=== PATIENT | male | born 1995 | race Caucasian/White ===

== ENCOUNTER 2017-10-29 12:53 | Emergency (ER) | payer OTHER ==
[2017-10-29 13:25] LABS: PLATELET COUNT 247 10^3/uL (150-400)
--- NOTE | 2017-10-29 13:40 | EDPHY ---
H & P Time Seen by Provider: 10/29/17 13:16 HPI/ROS: Chief complaint. Abdominal pain HPI. 22-year-old male presents emergency department with 1 week history of nausea after eating. No vomiting. Some diarrhea that is not contain blood. Last 2-3 days uncomfortable in the left side of his abdomen. Some sensation that it goes through to his back. He describes as crampy. Maybe slight fever. No urinary symptoms. Penis and testicles are normal. No abdominal history or previous abdominal surgery. No chest discomfort or shortness of breath. ROS Constitutional. Subjective fever Eyes. no problems with vision ENT. no sore throat, no nasal drainage Cardiovascular. no chest pain Respiratory. no shortness of breath, no cough Abdominal. Left-sided abdominal pain with nausea and diarrhea . no problems urinating MS. no calf pain/swelling, no neck/back pain, no joint pain Skin. no rash Lymph. no swollen glands Neuro. no headache, no dizziness, no difficulty walking or with speech Past Medical/Surgical History: Asthma Social History: Single, nonsmoker, no alcohol Smoking Status: Never smoked Physical Exam: General Appearance: Alert well-developed male mild distress vital signs are stable Eyes: Pupils equal and round no pallor or injection. ENT, Mouth: Mucous membranes are moist. Respiratory: There are no retractions, lungs are clear to auscultation. Cardiovascular: Regular rate and rhythm. Gastrointestinal: Abdomen is soft and minimally, diffusely tender left mid and upper abdomen. No masses. Normal bowel sounds Neurological: Awake and alert, sensory and motor exams grossly normal. Skin: Warm and dry, no rashes. Musculoskeletal: Neck is supple nontender. Extremities symmetrical, full range of motion. Psychiatric: Patient is oriented X 3, there is no agitation. Constitutional: Initial Vital Signs Temperature (C) 36.6 C 10/29/17 12:55 Heart Rate 76 10/29/17 12:55 Respiratory Rate 18 10/29/17 12:55 Blood Pressure 144/89 H 10/29/17 12:55 O2 Sat (%) 98 10/29/17 12:55 O2 Delivery Mode Room Air Allergies/Adverse Reactions: Penicillins Allergy (Unknown, Verified 10/29/17 12:54) Home Medications: Medication Instructions Recorded Albuterol [Proventil Inhaler] 1 - 2 puffs IH Q4 PRN 05/26/13 FLUTICASONE/SALMETEROL [ADVAIR HFA 1 puffs IH 10/29/17 230-21 MCG INHALER] Famotidine [Pepcid] 40 mg PO DAILY #7 tablet 10/29/17 Medical Decision Making - Diagnostics Imaging Results: Imaging Impressions Abdomen X-Ray 10/29/17 13:50 Impression: Normal upright abdomen series. One-view upright abdomen interpreted by me is normal. No evidence air-fluid levels or free air Procedures: IV normal saline ED Course/Re-evaluation: Re-evaluation at 3:25 p.m.-- Stable 4:10 p.m.. Better after GI cocktail. Patient and I discussed imaging and lab results. We discussed treatment plan including criteria for return and importance of follow-up further evaluation. He expresses understanding and agreed Differential Diagnosis: I suspect that this is a gastroenteritis. I considered peptic ulcer disease, constipation, bowel obstruction. - Data Points Laboratory Results: Laboratory Results 10/29/17 13:15 10/29/17 13:15 10/29/17 10/29/17 10/29/17 13:15 13:15 13:15 WBC 4.81 10^3/uL 10^3/uL (3.80-9.50) RBC 5.70 10^6/uL 10^6/uL (4.40-6.38) Hgb 17.6 g/dL H g/dL (13.7-17.5) Hct 48.3 % % (40.0-51.0) MCV 84.7 fL fL (81.5-99.8) MCH 30.9 pg pg (27.9-34.1) MCHC 36.4 g/dL g/dL (32.4-36.7) RDW 11.7 % % (11.5-15.2) Plt Count 247 10^3/uL 10^3/uL (150-400) MPV 9.6 fL fL (8.7-11.7) Neut % (Auto) 66.2 % % (39.3-74.2) Lymph % (Auto) 24.5 % % (15.0-45.0) [place] % (Auto) 7.5 % % (4.5-13.0) Eos % (Auto) 1.2 % % (0.6-7.6) Baso % (Auto) 0.4 % % (0.3-1.7) Nucleat RBC Rel Count 0.0 % % (0.0-0.2) Absolute Neuts (auto) 3.18 10^3/uL 10^3/uL (1.70-6.50) Absolute Lymphs (auto) 1.18 10^3/uL 10^3/uL (1.00-3.00) Absolute Monos (auto) 0.36 10^3/uL 10^3/uL (0.30-0.80) Absolute Eos (auto) 0.06 10^3/uL 10^3/uL (0.03-0.40) Absolute Basos (auto) 0.02 10^3/uL 10^3/uL (0.02-0.10) Absolute Nucleated RBC 0.00 10^3/uL 10^3/uL (0-0.01) Immature Gran % 0.2 % % (0.0-1.1) Immature Gran # 0.01 10^3/uL 10^3/uL (0.00-0.10) Turbidity Cancelled Sodium Cancelled 143 mEq/L mEq/L (134-144) Potassium Cancelled 3.9 mEq/L mEq/L (3.5-5.2) Chloride Cancelled 103 mEq/L mEq/L (97-110) Carbon Dioxide Cancelled 26 mEq/l mEq/l (22-31) Anion Gap Cancelled 14 mEq/L mEq/L (8-16) BUN Cancelled 13 mg/dL mg/dL (7-23) Creatinine Cancelled 1.0 mg/dL mg/dL (0.7-1.3) Estimated GFR Cancelled > 60 Glucose Cancelled 87 mg/dL mg/dL (70-100) Calcium Cancelled 9.8 mg/dL mg/dL (8.5-10.4) Lipase 74 IU/L IU/L (23-300) Specimen Hemolysis Cancelled Medications Given: Discontinued Medications Al Hydroxide/Mg Hydroxide (Maalox Susp) 30 ml PO ONCE ONE Stop: 10/29/17 15:24 Last Admin: 10/29/17 15:52 Dose: 30 ml Sodium Chloride (Ns) 1,000 mls @ 0 mls/hr IV EDNOW ONE; Wide Open PRN Reason: Protocol Stop: 10/29/17 13:51 Last Admin: 10/29/17 14:03 Dose: 1,000 mls Lidocaine (Lidocaine 2% Viscous) 15 ml PO ONCE ONE Stop: 10/29/17 15:24 Last Admin: 10/29/17 15:52 Dose: 15 ml Departure - Departure Disposition: Home, Routine, Self-Care Clinical Impression: Acute gastroenteritis Condition: Good Instructions: Gastroenteritis (ED) Additional Instructions: Drink plenty of fluids and stay hydrated. Easy diet initially but gradual diet advancement. Pepcid daily for the next 1 week. Return for worsening pain, fever, vomiting. Recheck in 3-4 days if not improving Referrals: NONE *PRIMARY CARE P,. [Primary Care Provider] - As per Instructions Wendy Hernandez MD [[facility] [place] Primary Care Provider] - 3-4 days, if not improved Prescriptions: Famotidine [Pepcid] 40 mg PO DAILY #7 tablet
[2017-10-29] MEDS ORDERED: NS 1,000 ML IV ONE (13:50)
[2017-10-29] MEDS ORDERED: MAG HYDROX/AL HYDROX/SIMETH 30 ML UDCUP PO ONE (15:23)
[2017-10-29] MEDS ORDERED: LIDOCAINE 2% VISCOUS 15 ML UDCUP PO ONE (15:23)
[2017-10-29 16:38] VITALS: BP 132/74; PULSE 82; RESP 18; TEMP 97.7; O2SAT 96
== END 2017-10-29 16:36 | disposition home or self-care (01) ==
DX: K52.9 Noninfective gastroenteritis and colitis, unspecified (principal); J45.909 Unspecified asthma, uncomplicated; E86.9 Volume depletion, unspecified